=== PATIENT | male | born 1960 | race African-American/Black ===

== ENCOUNTER 2017-09-08 13:00 | Emergency (ER) | payer OTHER, SELFPAY ==
[2017-09-08] MEDS ORDERED: Acetaminophen 500 MG TAB ONE (13:22)
== END 2017-09-08 13:28 | disposition home or self-care (01) ==
LOC: NAV ERS 13:00
DX: E11.40 Type 2 diabetes mellitus with diabetic neuropathy, unspecified (principal); M25.562 Pain in left knee; E78.5 Hyperlipidemia, unspecified; I10 Essential (primary) hypertension; Z79.4 Long term (current) use of insulin
CPT/HCPCS: 99283

== ENCOUNTER → 2020-09-25 | Emergency (ER) | payer SELFPAY ==
[~2020-09-25] MED LIST: Cefepime 2 GM VIAL ONE; Insulin Regular 300 UNITS/3 ML VIAL ONE; Sodium Chloride 0.9% 1,000 ML ONE; Sodium Chloride 0.9% 100 ML ONE; Sodium Chloride 0.9% 500 ML ONE
[2020-09-25 21:41] LABS: ALT (SGPT) 18 U/L (8-55); AST (SGOT) 16 U/L (5-34); Albumin 4.1 g/dL (3.5-5.0); Alkaline Phosphatase 44 U/L (40-110); Anion Gap 26 mmol/L (10-20); BUN (Urea Nitrogen) 38 mg/dL (8.4-25.7); Bilirubin, Total 0.5 mg/dL (0.2-1.2); Calc. Creatinine Clearance 0 mL/min (70-130); Calcium 9.9 mg/dL (7.8-10.44); Carbon Dioxide 20 mmol/L (22-29); Chloride 100 mmol/L (98-107); Globulin 3.3 g/dL (2.4-3.5); Glucose 214 mg/dL (70-105); Protein, Total 7.4 g/dL (6.0-8.3); Sodium 142 mmol/L (136-145)
[2020-09-25 21:42] LABS: #Basophils 0.2 thou/uL (0.0-0.2); #Lymphocytes 1.7 thou/uL (1.20-3.40); #Neutrophils 9.2 thou/uL (1.40-6.50); %Basophils 1.6 % (0.0-1.0); %Eosinophils 0.1 % (0.0-10.0); %Lymphocytes 13.8 % (21.0-51.0); %Monocytes 8.1 % (0.0-10.0); %Neutrophils 76.4 % (42.0-75.0); Hemoglobin 15.1 g/dL (14.0-18.0); Manual Diff?? NO; Mean Corpuscular HGB CONC 30.2 g/dL (32.0-36.0); Mean Corpuscular Hemoglobin 24.7 pg (27.0-31.0); Mean Corpuscular Volume 81.7 fL (78.0-98.0); Mean Platelet Volume 13.9 fL (7.4-10.4); Platelet Count 173 thou/uL (130-400); RBC Distribution Width 12.5 % (11.5-14.5); Red Blood Cell (RBC) Count 6.12 mill/uL (4.70-6.10)
[2020-09-25 21:45] LABS: Base Excess-Venous -2.5 mmol/L (-2.0 to 3.0); Bicarbonate (HCO3v) 23.1 mmol/L (22.0-28.0); CO2 Tension (PvCO2) 41.7 mmHg (40.0-50.0)
[2020-09-25 21:46] LABS: Calcium, Ionized 1.08 mmol/L (1.15-1.33); Chloride 104 mmol/L (98-107); Hemoglobin - Calc 16.4 g/dL (14.0-18.0); Potassium 4.2 mmol/L (3.5-5.1); Sodium 141 mmol/L (138-145); T. Carbon Dioxide 24.3 mmol/L (22.0-28.0); vO2 Saturation-calc 83.6 % (60.0-85.0)
--- NOTE | 2020-09-25 21:47 | RAD ---
Chest one view HISTORY: Dyspnea. Hypoglycemia. FINDINGS: The cardiac silhouette and pulmonary vasculature are unremarkable. Mediastinum is midline. No confluent airspace consolidation or evidence of pneumothorax. IMPRESSION : No abnormalities are demonstrated.
[2020-09-25 22:17] LABS: Bilirubin Moderate (Negative); Blood, Urine Negative (Negative); Clarity Clear (Clear); Glucose, Urine (Dipstick) >=1000 mg/dL (Negative); Ketone, Urine 15 mg/dL (Negative); Leukocyte Negative (Negative); Nitrite Negative (Negative); Protein, Urine (Dipstick) Negative (Neg-Trace); Urobilinogen 0.2 mg/dL (Less than 2)
[2020-09-25 22:18] LABS: Specific Gravity, Urine 1.005 (1.002-1.036)
[2020-09-26 00:25] LABS: Lactic Acid 0.9 mmol/L (0.5-2.2)
[2020-09-26 02:00] LABS: CK (CPK) 531 U/L (30-200); Lipase 12 U/L (8-78)
[2020-09-26 02:00] LABS: Amphetamine Not Detected (NotDetected); Barbiturates Screen Not Detected (NotDetected); Benzodiazepine Screen Not Detected (NotDetected); Cocaine Metabolite Screen Not Detected (NotDetected); Medtox Control Line Valid? VALID (VALID); Methadone Not Detected (NotDetected); Methamphetamine Not Detected (NotDetected); Opiate Screen Not Detected (NotDetected); Oxycodone Screen Not Detected (NotDetected); Phencyclidine (PCP) Not Detected (NotDetected); THC/Cannabinoid Screen Not Detected (NotDetected); Tricyclic Screen Not Detected (NotDetected)
[2020-09-26 10:02] LABS: #Basophils 0.2 thou/uL (0.0-0.2); #Eosinphils 0.1 thou/uL (0.0-0.7); #Lymphocytes 1.8 thou/uL (1.20-3.40); #Monocytes 0.8 thou/uL (0.11-0.59); #Neutrophils 7.9 thou/uL (1.40-6.50); %Basophils 1.7 % (0.0-1.0); %Eosinophils 0.9 % (0.0-10.0); %Lymphocytes 16.6 % (21.0-51.0); %Monocytes 7.7 % (0.0-10.0); %Neutrophils 73.1 % (42.0-75.0); Hemoglobin 12.3 g/dL (14.0-18.0); Mean Corpuscular Hemoglobin 25.1 pg (27.0-31.0); Mean Corpuscular Volume 80.8 fL (78.0-98.0); Mean Platelet Volume 12.9 fL (7.4-10.4); Platelet Count 126 thou/uL (130-400); RBC Distribution Width 12.4 % (11.5-14.5); White Blood Cell (WBC) Count 10.8 thou/uL (4.8-10.8)
[2020-09-26 10:09] LABS: Anion Gap 14 mmol/L (10-20); Globulin 2.6 g/dL (2.4-3.5)
[2020-09-26 10:24] LABS: Sodium 142 mmol/L (136-145)
[2020-09-26 10:25] LABS: BUN (Urea Nitrogen) 28 mg/dL (8.4-25.7); Calc. Creatinine Clearance 0 mL/min (70-130); Carbon Dioxide 21 mmol/L (22-29); Chloride 111 mmol/L (98-107)
[2020-09-26 10:26] LABS: Albumin 3.2 g/dL (3.5-5.0); Bilirubin, Total 0.6 mg/dL (0.2-1.2); Calcium 7.8 mg/dL (7.8-10.44); Protein, Total 5.8 g/dL (6.0-8.3)
[2020-09-26 10:27] LABS: ALT (SGPT) 13 U/L (8-55); AST (SGOT) 20 U/L (5-34); Alkaline Phosphatase 36 U/L (40-110); Glucose 246 mg/dL (70-105)
[2020-09-26 17:05] LABS: SARS-CoV-2 PCR by NAA Not Detected (NotDetected)
== END ==
LOC: NAV ERS 20:47
DX: A41.9 Sepsis, unspecified organism (principal); E11.9 Type 2 diabetes mellitus without complications; E78.5 Hyperlipidemia, unspecified; Z79.4 Long term (current) use of insulin; Z79.899 Other long term (current) drug therapy
CPT/HCPCS: 36416; 51701; 71045; 80053; 80306; 81003; 82010; 82330; 82550; 82803; 83605; 83690; 84484; 85014; 85025; 87040; 87086; 87635; 93005; 96365; 96366; 96368; 96376; J0692; J1815; J3370; J3490; J7030; J7050; U0003; U0005

== ENCOUNTER 2020-10-29 08:56 | Emergency (ER) | payer SELFPAY | END 2020-10-29 10:06 | disposition home or self-care (01) | LOC: NAV ERS 08:56 | DX: M54.31 Sciatica, right side (principal); E11.9 Type 2 diabetes mellitus without complications; E78.5 Hyperlipidemia, unspecified; I10 Essential (primary) hypertension; Z79.4 Long term (current) use of insulin; Z79.899 Other long term (current) drug therapy | CPT/HCPCS: 99283 ==